=== PATIENT | male | born 1970 | race Two or more races ===

== ENCOUNTER 2020-01-07 15:41 | Emergency (ER) | payer SELFPAY ==
[~2020-01-07] VITALS: Ht 172.7 cm; Wt 84.8 kg
[2020-01-07 17:39] LABS: Urine WBC None Seen /hpf (0 - 3)
[2020-01-07 17:51] LABS: Albumin 3.9 g/dL (3.4-5.0); BUN/Creatinine Ratio 14.3; Calcium 8.8 mg/dL (8.5-10.1); Potassium 3.7 mmol/L (3.5-5.1)
[2020-01-07 17:52] LABS: INR 1.06 (0.9-1.15); Partial Thromboplastin Time 21.4 sec (23.64-32.05)
[2020-01-07 17:54] LABS: Bilirubin, Total 0.4 mg/dL (0.2-1.0); Total Protein 8.3 g/dL (6.4-8.2)
[2020-01-07 18:04] LABS: Urine Bacteria NONE SEEN /hpf (None Seen); Urine Blood Negative /uL (Negative)
[2020-01-07 18:10] LABS: Red Blood Cells 4.96 10^6/uL (4.5-5.90); White Blood Cell 7.3 10^3/uL (4.4-10.8)
[2020-01-07 18:12] LABS: Basophils # (auto) 0 10 ^3/uL (0-0.2); Basophils % (auto) 0.7 % (0.0-2.0); Eosinophils # (auto) 0 10 ^3/uL (0-0.8); Eosinophils % (auto) 0.7 % (0.0-7.0); Hematocrit 27.7 % (41.0-53.0); Hemoglobin 7.9 g/dL (13.5-17.5); Lymphocytes # (auto) 2.4 10 ^3/uL (0.4-5.4); Lymphocytes % (auto) 33.4 % (10.0-50.0); Mean Corpuscular Hemoglobin 15.8 pg (28.0-32.0); Mean Corpuscular Hgb Conc. 28.4 g/dL (32.0-36.0); Mean Corpuscular Volume 55.7 fL (80.0-100.0); Monocytes # (auto) 0.3 10 ^3/uL (0-1.3); Monocytes % (auto) 4.7 % (0.0-12.0); Neutrophils # (auto) 4.4 10 ^3/uL (1.6-8.6); Neutrophils % (auto) 60.5 % (37.0-80.0); Platelet Count (auto) 363 10^3/uL (140-450)
[2020-01-07 18:14] LABS: Red Cell Distribution Width 20.7 % (11.8-14.3)
[2020-01-07] MEDS ORDERED: FERROUS SULFATE 325 MG TAB PO ONE (18:30)
[2020-01-07 18:38] VITALS: BP 111/66
== END 2020-01-07 19:10 | disposition home or self-care (01) ==
LOC: ER 15:41
DX: D64.9 Anemia, unspecified (principal); K64.9 Unspecified hemorrhoids; K44.9 Diaphragmatic hernia without obstruction or gangrene; K42.9 Umbilical hernia without obstruction or gangrene; K57.90 Diverticulosis of intestine, part unspecified, without perforation or abscess without bleeding
CPT/HCPCS: 36415; 74176; 80053; 81001; 85025; 85610; 85730; 86850; 86900; 86901